=== PATIENT | female | born 2000 | race Caucasian/White ===

== ENCOUNTER 2024-04-07 01:30 | Emergency (ER) | payer SELFPAY ==
[2024-04-07 01:33] VITALS: BP 144/93; PULSE 114; RESP 14; TEMP 36.6; O2SAT 100; BMI 19.6
[2024-04-07 01:57] LABS: Bedside Glucose 172 mg/dL (74-106)
[2024-04-07 02:53] LABS: Mucous, Urine 0 SEEN /hpf (<or=2+); Red Blood Cells-Urine 0 SEEN /hpf (0-5); White Blood Cells 0 SEEN /hpf (0-5)
[2024-04-07 02:55] LABS: Absolute Lymphocyte Count 1.48 X10^3/uL (0.83-4.51); Basophil# 0.04 X10^3/uL; Basophil% 0.8 % (0-1); Eosinophil# 0.08 X10^3/uL; Eosinophils% 1.5 % (0-5); Hematocrit 38.1 % (37-47); Hemoglobin 12.9 g/dL (12.0-15.0); Lymphocyte # 1.48 X10^3/ul (0.83-4.51); Lymphocyte % 28.3 % (19-41); Mean Corp Hgb Conc 33.9 g/dL (32-36); Mean Corpuscular Hgb 30.2 pg (27.0-32.0); Mean Corpuscular Volume 89.2 fL (81-99); Mean Platelet Vol. 10.1 fl (6.2-12.0); Monocyte# 0.65 X10^3/uL; Monocyte% 12.4 % (0-10); NRBC Flagged by Analyzer 0 % (0-5); Neutrophil # 2.97 X10^3/uL (2.7-7.7); Neutrophil % 56.8 % (47-70); Platelet Count 223 K/mm3 (150-450); RBC Distribution Width CV 11.9 % (11.6-14.6); RBC Distribution Width SD 38.6 fl (35.1-43.9); Red Blood Count 4.27 M/mm3 (4.2-5.4); White Blood Count 5.2 K/mm3 (4.4-11.0)
[2024-04-07 02:58] LABS: Color, Urine Straw (Yellow); Glucose, Dipstick Normal (Normal); Ketone-Dipstick Negative (Negative); Leukocyte Esterase-Dipstick Negative /ul (Negative); Nitrite-Dipstick Negative (Negative); Occult Blood-Urine Negative /ul (Negative); Protein-Dipstick Negative (Negative); Urine Bilirubin Dipstick Negative (Negative); Urine Clarity Sl. Cloudy (Clear); Urine Urobilinogen Normal (Normal)
[2024-04-07 03:00] LABS: Internal QC Validated? YES +Cl - CLEAR BKGD; Pregnancy, Urine Negative Negative; Record Kit Lot#,Urine Preg 869294
--- NOTE | 2024-04-07 03:00 | RAD_ITS ---
INDICATION: cough EXAMINATION/TECHNIQUE: X-RAY - XR Chest 2 Views COMPARISON: None. Findings: Frontal and lateral views of the chest. LUNG PARENCHYMA: No acute focal airspace disease or mass lesion. PLEURA: No pleural effusion. No pneumothorax. HEART/GREAT VESSELS: Cardiomediastinal silhouette is unremarkable. BONES: Osseous structures are unremarkable for age. RAD/Chest PA and Lateral IMPRESSION: Chest with no acute disease. Electronically Signed: Sy Crawford MD at 3:35 EST ,
[2024-04-07 03:05] LABS: Bacteria 1+ /hpf (None Seen); Squamous Epithelial Cells - UA 5-10 SEEN /hpf (5-10)
[2024-04-07 03:08] LABS: Anion Gap 3 (5-15); BUN 15 mg/dL (7-18); BUN/Creat Ratio 14.4 RATIO (10-20); Calcium,Total 9.4 mg/dL (8.5-10.1); Chloride 108 mmol/L (98-107); Creatinine, Serum 1.04 mg/dL (0.55-1.02); EST Glomerular Filtration Rate 70 mL/min (>60); Est Glom Filt Rate - Afr Amer 84 mL/min (>60); Glucose 190 mg/dL (74-106); Magnesium 1.8 mg/dL (1.6-2.6); Potassium 3.7 mmol/L (3.5-5.1); Sodium Level 140 mmol/L (136-145)
[2024-04-07 03:30] VITALS: BP 102/64; PULSE 66; RESP 14; O2SAT 97
[2024-04-07 05:00] VITALS: BP 112/67; PULSE 69; RESP 16; O2SAT 97
--- NOTE | 2024-04-07 05:46 | EDS_ITS ---
HPI History of Present Illness Chief Complaint: General Illness Informant: patient and spouse/S.O. Narrative Narrative: Patient is a 23-year-old female with past medical history of type 1 diabetes celiac disease as well as anxiety. She states this evening she was at home and developed shaking of her arms and legs. She states she was awake while this was occurring and she denies any history of seizure disorder. She states that the shaking lasted for multiple minutes and she was concerned this could be related to her blood sugar so she checked it but it was normal. She states symptoms have since resolved but as she does not know why they occurred she presents for evaluation [facility] Medical History (Updated 04/08/24 @ 06:[address] Chris Rose, ) Anxiety Hypothyroid Type 1 diabetes Celiac disease Allergy/AdvReac Type Severity Reaction Status Date / Time gluten Allergy Abd Verified 04/07/24 01:33 cramps/diarrhea Social History Smoking Status: Never smoker ROS ROS ED Constitutional Constitutional ED: Denies chills or fever(s) Eyes Eyes: Denies change in vision ENT ENT ED: Denies sore throat Cardiovascular Cardiovascular: Denies chest pain, palpitations or racing heartbeat Respiratory/Chest Respiratory/Chest: Denies cough or dyspnea Gastrointestinal Gastrointestinal: Denies abdominal pain, diarrhea, nausea or vomiting Genitourinary Genitourinary ED: Denies dysuria Musculoskeletal Musculoskeletal: Reports other Details: Positive shaking ; Denies myalgias Integumentary Denies rash Neurologic Neurologic: Denies headache(s), paresthesias or weakness Psychiatric Psychiatric: Reports anxiety Hematologic/Lymphatic Hematologic/Lymphatic: Denies easy bleeding or easy bruising EXAM Physical Exam Const Vital Signs: 04/07/24 01:33 04/07/24 01:37 04/07/24 03:30 Temperature 98 F Temperature Source Oral Pulse Rate 114 H 66 Respiratory Rate 14 14 Respiratory Effort Normal Non-Labored Respiratory Pattern Normal Blood Pressure 144/93 H 102/64 Blood Pressure Mean 110 76 Pulse Ox 100 97 Oxygen Delivery Method Room Air Room Air 04/07/24 05:00 Temperature Temperature Source Pulse Rate 69 Respiratory Rate 16 Respiratory Effort Respiratory Pattern Blood Pressure 112/67 Blood Pressure Mean 82 Pulse Ox 97 Oxygen Delivery Method Room Air Positive well nourished and well developed General Appearance ED: well developed; Negative for pallor HEENT Reports moist mucous membranes HEENT Narrative: There is slight cobblestoning the posterior pharynx consistent with sinus drainage No secondary findings to suggest infection No airway edema or compromise Eyes PERRL and EOMs intact bilaterally General Eye ED: Negative for pale conjunctiva or scleral icterus Neck supple Neck Narrative: No nuchal rigidity or meningeal signs Resp normal respiratory effort and clear to auscultation bilaterally Cardio regular rate and regular rhythm Rate: other Other Details: Heart is regular rate and rhythm without murmurs rubs or gallops Radial and carotid pulses are equal and symmetric GI normal to inspection, nondistended, normoactive bowel sounds, non-tender, non- distended and no masses GI Narrative: No voluntary guarding or rigidity or pulsatile mass Auscultation: normoactive bowel sounds Palpation: soft Back/Spine no CVA tenderness Extremity normal to inspection Neuro oriented x3, CN's II-XII intact bilaterally and no sensory deficits noted Sensorium / Orientation: alert Motor Exam: strength 5/5 throughout Psych mental status grossly normal Skin no rashes or lesions noted, no wounds and skin turgor normal General Skin Exam: Negative for jaundice or pallor MDM MDM MDM Narrative Medical decision making narrative: Patient arrived to the ER hypertensive and tachycardic but was afebrile and resting in no acute distress. She reported a generalized shaking sensation at home but was awake during this which goes against seizure activity. She also reported checking her blood sugar and it was normal going against a hypoglycemic event. In order to ensure that her sensation of shaking is not due to acute electrolyte abnormalities such as hypokalemia or hypomagnesemia or that there are potential complications or infectious changes such as UTI I did like to perform basic laboratory studies. There is also concern that this could be the early start of a viral syndrome such as COVID or influenza or RSV. Basic blood work revealed no clinically significant findings urine sample showed no sign of infection and patient is not . Viral swab was negative as well. She has no signs of DKA or HHS. The patient's vitals improved and she had no further bouts of her reported shaking in the ER. Therefore at this time with overall negative workup and resolution of symptoms I do not feel there is need for further evaluation and she is otherwise safe for discharge. History & Record Review Discussion w/independent historian: Patient and Significant other Lab Data Attestation: I reviewed the patient's lab results. Labs: Laboratory Results - last 24 hr 04/07/24 04/07/24 04/07/24 01:38 02:44 02:49 WBC 5.2 RBC 4.27 Hgb 12.9 Hct 38.1 MCV 89.2 MCH 30.2 MCHC 33.9 RDW Std Deviation 38.6 RDW Coeff of Craig 11.9 Plt Count 223 MPV 10.1 Immature Gran % (Auto) 0.200 Neut % (Auto) 56.8 Lymph % (Auto) 28.3 [place] % (Auto) 12.4 H Eos % (Auto) 1.5 Baso % (Auto) 0.8 Absolute Neuts (auto) 3.0 Absolute Lymphs (auto) 1.48 Nucleated RBC % 0 Sodium 140 Potassium 3.7 Chloride 108 H Carbon Dioxide 28.0 Anion Gap 3 L BUN 15 Creatinine 1.04 H Estim Creat Clear Calc 75.70 Est GFR (MDRD) Af Amer 84 Est GFR (MDRD) Non-Af 70 BUN/Creatinine Ratio 14.4 Glucose 190 H Calcium 9.4 Magnesium 1.8 Urine Color Straw Urine Clarity Sl. Cloudy Urine pH 7.0 Ur Specific [place] 1.010 Urine Protein Negative Urine Glucose (UA) Normal Urine Ketones Negative Urine Occult Blood Negative Urine Nitrite Negative Urine Bilirubin Negative Urine Urobilinogen Normal Ur Leukocyte Esterase Negative Urine RBC 0 SEEN Urine WBC 0 SEEN Ur Squamous Epith Cells 5-10 SEEN Urine Bacteria 1+ Urine Mucus 0 SEEN Urine Test Negative POC Glucose 172 H Radiography Diagnostic Testing: Clinical Impression(s) from Imaging Studies Chest X-Ray 04/07/24 03:00 IMPRESSION: Chest with no acute disease. Electronically Signed: Sy Crawford MD at 3:35 EST , Chest x-ray as interpreted by the emergency medicine physician reveals no acute infiltrate pneumothorax or pleural effusion Discharge Plan Triage Chief Complaint: General Illness ED Provider: Chris Rose Dx/Rx/DC Orders Clinical Impression: Viral syndrome, Shaking chills, Type 1 diabetes, Celiac disease Instructions: ED URI, Viral, No Abx (Adult) Primary Care Provider: KEYLA SIFUENTES Referrals: KEYLA SIFUENTES [Other] Print Language: Mongolian Disposition Disposition: Home, Self Care Discharge Date/Time: 04/07/24 05:52
[2024-04-07 05:51] VITALS: BP 108/76; PULSE 64; RESP 17; TEMP 36.4; O2SAT 99
== END 2024-04-07 05:52 | disposition home or self-care (01) ==
PROVIDERS: Emergency Provider Emergency Medicine; Visit Provider Emergency Medicine
DX: B34.9 Viral infection, unspecified (principal); E10.9 Type 1 diabetes mellitus without complications; K90.0 Celiac disease
CPT/HCPCS: 71046; 80048; 81001; 81025; 82962; 83735; 85025; 87631; 99283; A4216